=== PATIENT | female | born 1930 | race Caucasian/White ===

== ENCOUNTER → 2017-10-04 | Outpatient (CLI) | payer MEDICARE ==
[~2017-10-04] MED LIST: AMLO5TAB2 PO; CALC3.7S5 NS; CEFD300C37 PO; HYDR-3240 PO; NIFE20CA PO; NIFE30TA13 PO; POLY17PO5 PO; RIVA10TA PO
[2017-10-04 12:20] LABS: BASOPHILS # (AUTO) 0.08 x10^3/uL (0-0.1); BASOPHILS % (AUTO) 1 % (0-1); EOSINOPHILS # (AUTO) 0.09 x10^3/uL (0-0.4); EOSINOPHILS % (AUTO) 1 % (1-7); LYMPHOCYTES % (AUTO) 10 % (22-44); MD NO; MEAN CORPUSCULAR HEMOGLOBIN 32.1 pg (27.0-34.8); MEAN CORPUSCULAR HGB CONC 33.5 g/dL (32.4-35.8); MEAN CORPUSCULAR VOLUME 95.8 fL (80-100); MEAN PLATELET VOLUME 8.5 fL (7.4-10.4); MONOCYTES # (AUTO) 0.79 x10^3/uL (0.2-0.8); MONOCYTES % (AUTO) 9 % (2-9); NEUTROPHILS % (AUTO) 79 % (42-75); PLATELET COUNT 408 x10^3/uL (130-400); RED BLOOD COUNT 4.09 x10^6/uL (3.82-5.3); RED CELL DISTRIBUTION WIDTH 14.1 % (9.6-15.2)
[2017-10-04 12:28] LABS: PROTHROMBIN TIME 10.4 Seconds (9.6-11.5)
[2017-10-04 12:33] LABS: CULTURE INDICATED? YES; MICROSCOPIC INDICATED
[2017-10-04 12:36] LABS: ALBUMIN 3.6 g/dL (3.4-5.0); ANION GAP 6 mmol/L (5-15); CALCIUM 9.1 mg/dL (8.5-10.1); CHLORIDE 98 mmol/L (98-107)
[2017-10-04 12:41] LABS: ALANINE AMINOTRANSFERASE 28 U/L (12-78); ALKALINE PHOSPHATASE 119 U/L (45-117); BILIRUBIN,TOTAL 0.6 mg/dL (0.2-1.0); CREATININE 0.96 mg/dL (0.55-1.02); TOTAL PROTEIN 7.8 g/dL (6.4-8.2)
[2017-10-04 12:57] LABS: HEMOGLOBIN A1C 5.6 % (4.2-6.3)
== END | disposition home or self-care (01) ==
LOC: STAR 10:37
PROVIDERS: ATTEND Orthopaedic Surgery
DX: Z01.818 Encounter for other preprocedural examination (principal); M16.11 Unilateral primary osteoarthritis, right hip
CPT/HCPCS: 36415; 80053; 81001; 83036; 85025; 85610; 85730; 87081; 87086; 87806; 93005; G0475

== ENCOUNTER 2017-10-29 18:11 | Emergency (ER) | payer MEDICARE ==
[~2017-10-29] VITALS: Ht 162.6 cm; Wt 44.0 kg
[~2017-10-29 18:11] MED LIST changes: +ASPI-621 PO; +CELE200C PO; +DIAZ5TAB PO; +DOCU-131 PO; +ONDA4TAB7 PO; +OXYC5CAP2 PO; +TRAM50TA2 PO
[2017-10-29] MEDS ORDERED: AZIT250T PO (18:42)
[2017-10-29] MEDS ORDERED: OMEP20TA62 PO (18:42)
[2017-10-29] MEDS ORDERED: MIRT15TA PO (18:42)
[2017-10-29] MEDS ORDERED: LISI40TA PO (18:42)
[2017-10-29 20:03] VITALS: BP 189/91
== END 2017-10-29 20:39 | disposition home or self-care (01) ==
LOC: ED 20:33
DX: S00.03XA Contusion of scalp, initial encounter (principal); I10 Essential (primary) hypertension; W19.XXXA Unspecified fall, initial encounter; Y93.89 Activity, other specified; Y92.009 Unspecified place in unspecified non-institutional (private) residence as the place of occurrence of the external cause; Y99.9 Unspecified external cause status
CPT/HCPCS: 70450; 99284

== ENCOUNTER 2018-09-21 17:18 | Observation (INO) | payer MEDICARE ==
[~2018-09-21] VITALS: Ht 165.1 cm; Wt 45.7 kg
[~2018-09-21 17:18] MED LIST changes: +AMLO-150 PO; -AMLO5TAB2 PO; -ASPI-621 PO; +ASPI81TA45 PO; +AZIT250T PO; +LISI40TA PO; +MIRT15TA PO; +OMEP20TA62 PO; -RIVA10TA PO; +RIVA10TA2 PO
[2018-09-21] MEDS ORDERED: AMLO5TAB10 PO (17:37)
[2018-09-21] MEDS ORDERED: HYDR25TA6 PO (17:37)
[2018-09-21] MEDS ORDERED: PANT40TA5 PO (17:37)
[2018-09-21] MEDS ORDERED: OLAN5TAB9 PO (17:37)
[2018-09-21] MEDS ORDERED: CELE-47 PO (17:38)
--- NOTE | 2018-09-21 17:38 | NUR ---
O2 SAT 89-90% RA. OXYGEN VIA NC APPLIED; WILL TITRATE.
[2018-09-21] MEDS ORDERED: SODIUM CHLORIDE FLUSH 10ML SYR IVF PRN (20:00)
--- NOTE | 2018-09-21 20:08 | NUR ---
PT REPORT TO KENDRA DYER FOR ROOM 378. GOMEZ DISCUSSED PT STATUS W/ HER DANCING MASTER; PT BETTER CANDIDATE FOR NORTH. THROUGH PUT NURSE WILL BE NOTIFIED.
--- NOTE | 2018-09-21 20:21 | NUR ---
PT REPORT TO KENDRA MEEKS FOR ROOM 446.
--- NOTE | 2018-09-21 20:22 | NUR ---
PT'S SON: TAMMIE, TEL [phone].
[2018-09-21] MEDS ORDERED: LIDODERM 5% PATCH TD PRN (20:30)
[2018-09-21] MEDS ORDERED: BISACODYL 10 MG SUPP PR PRN (20:30)
[2018-09-21] MEDS ORDERED: HYDROcodone/APAP 5/325 TABLET PO PRN (20:30)
[2018-09-21] MEDS ORDERED: ONDANSETRON ODT 4 MG PO PRN (20:30)
[2018-09-21] MEDS ORDERED: hydrALAzine 20 MG/ML, 1ML IVPush PRN (20:30)
[2018-09-21] MEDS ORDERED: DOCUSATE 100 MG CAPSULE PO PRN (20:30)
[2018-09-21 20:47] LABS: BASOPHILS # (AUTO) 0.04 x10^3/uL (0-0.1); BASOPHILS % (AUTO) 0 % (0-1); EOSINOPHILS # (AUTO) 0.31 x10^3/uL (0-0.4); EOSINOPHILS % (AUTO) 2 % (1-7); LYMPHOCYTES # (AUTO) 1.18 x10^3/uL (1-3.4); LYMPHOCYTES % (AUTO) 8 % (22-44); MD NO; MEAN CORPUSCULAR HGB CONC 33.2 g/dL (32.4-35.8); MEAN CORPUSCULAR VOLUME 96.4 fL (80-100); MEAN PLATELET VOLUME 7.9 fL (7.4-10.4); MONOCYTES # (AUTO) 0.83 x10^3/uL (0.2-0.8); MONOCYTES % (AUTO) 6 % (2-9); NEUTROPHILS # (AUTO) 11.74 x10^3/uL (1.8-6.8); NEUTROPHILS % (AUTO) 83 % (42-75); PLATELET COUNT 403 x10^3/uL (130-400); RED BLOOD COUNT 3.75 x10^6/uL (3.82-5.3); RED CELL DISTRIBUTION WIDTH 13.6 % (9.6-15.2)
[2018-09-21 20:50] VITALS: BP 196/79
[2018-09-21 20:57] LABS: ALBUMIN 3.5 g/dL (3.4-5.0); ANION GAP 5 mmol/L (5-15); CALCIUM 9.2 mg/dL (8.5-10.1); CHLORIDE 106 mmol/L (98-107)
[2018-09-21 21:02] LABS: ALANINE AMINOTRANSFERASE 19 U/L (12-78); ALKALINE PHOSPHATASE 100 U/L (45-117); BILIRUBIN,TOTAL 0.7 mg/dL (0.2-1.0); CREATININE 0.86 mg/dL (0.55-1.02); TOTAL PROTEIN 7.8 g/dL (6.4-8.2)
[2018-09-21 22:00] VITALS: BP 196/79
[2018-09-21 22:40] VITALS: BP 149/89
[2018-09-21 22:56] LABS: MICROSCOPIC AUTO
[2018-09-21] MEDS ORDERED: HYDROCHLOROTHIAZIDE 25 MG TABLET PO PRN (23:00)
[2018-09-22 01:44] VITALS: BP 132/73
[2018-09-22 05:24] LABS: BASOPHILS # (AUTO) 0.03 x10^3/uL (0-0.1); BASOPHILS % (AUTO) 0 % (0-1); EOSINOPHILS # (AUTO) 0.05 x10^3/uL (0-0.4); EOSINOPHILS % (AUTO) 1 % (1-7); LYMPHOCYTES # (AUTO) 0.67 x10^3/uL (1-3.4); LYMPHOCYTES % (AUTO) 7 % (22-44); MD NO; MEAN CORPUSCULAR HEMOGLOBIN 31.5 pg (27.0-34.8); MEAN CORPUSCULAR HGB CONC 33.1 g/dL (32.4-35.8); MEAN CORPUSCULAR VOLUME 95.3 fL (80-100); MEAN PLATELET VOLUME 8.2 fL (7.4-10.4); MONOCYTES % (AUTO) 9 % (2-9); NEUTROPHILS # (AUTO) 7.67 x10^3/uL (1.8-6.8); NEUTROPHILS % (AUTO) 83 % (42-75); PLATELET COUNT 370 x10^3/uL (130-400); RED BLOOD COUNT 3.46 x10^6/uL (3.82-5.3); RED CELL DISTRIBUTION WIDTH 13.2 % (9.6-15.2)
[2018-09-22 05:26] LABS: ANION GAP 7 mmol/L (5-15); CALCIUM 9.1 mg/dL (8.5-10.1); CHLORIDE 106 mmol/L (98-107)
[2018-09-22 07:18] VITALS: BP 129/63
[2018-09-22] MEDS: HEPARIN 5,000 UNITS/ML, 1ML SQ SCH ×2 (11:28→20:18)
[2018-09-22] MEDS: LACTOBACILLUS CHEW TABLET PO SCH ×3 (11:28→20:17)
[2018-09-22] MEDS: PANTOPROZOLE 40MG TABLET PO SCH (11:29)
[2018-09-22] MEDS: LISINOPRIL 20 MG TABLET PO SCH ×2 (11:29→20:18)
[2018-09-22] MEDS: CEFTRIAXONE PMX 1GM/50ML 50 ML IV SCH (11:31)
[2018-09-22] MEDS ORDERED: BISACODYL 10 MG SUPP PR PRN (13:00)
[2018-09-22] MEDS ORDERED: MAGNESIUM CITRATE 300ML ORAL SOL PO ONE (13:00)
[2018-09-22 13:19] VITALS: BP 150/79
[2018-09-22] MEDS: AMLODIPINE 5 MG TABLET PO SCH (14:16)
[2018-09-22] MEDS: OLANZAPINE 5 MG TABLET PO SCH (14:16)
[2018-09-22] MEDS ORDERED: hydrALAzine 20 MG/ML, 1ML IVPush PRN (15:00)
[2018-09-22 18:24] VITALS: BP 155/89
[2018-09-23 00:43] VITALS: BP 147/82
[2018-09-23] MEDS: ALENDRONATE 10 MG TABLET PO SCH (06:18)
[2018-09-23 08:02] VITALS: BP 122/65
[2018-09-23] MEDS: LISINOPRIL 20 MG TABLET PO SCH ×2 (08:05→20:16)
[2018-09-23] MEDS: OLANZAPINE 5 MG TABLET PO SCH (08:05)
[2018-09-23] MEDS: PANTOPROZOLE 40MG TABLET PO SCH (08:05)
[2018-09-23] MEDS: AMLODIPINE 5 MG TABLET PO SCH (08:05)
[2018-09-23] MEDS: LACTOBACILLUS CHEW TABLET PO SCH ×3 (08:05→20:16)
[2018-09-23] MEDS: HEPARIN 5,000 UNITS/ML, 1ML SQ SCH ×2 (08:06→20:16)
[2018-09-23] MEDS: CEFTRIAXONE PMX 1GM/50ML 50 ML IV SCH (10:59)
[2018-09-23 14:00] VITALS: BP 135/72
[2018-09-23] MEDS: ACETAMINOPHEN 325 MG TABLET PO PRN ×2 (16:41→20:34)
[2018-09-23 19:55] VITALS: BP 111/70
[2018-09-24 00:39] VITALS: BP 103/57
[2018-09-24] MEDS: ACETAMINOPHEN 325 MG TABLET PO PRN (04:48)
[2018-09-24] MEDS: ALENDRONATE 10 MG TABLET PO SCH (07:05)
[2018-09-24 07:59] VITALS: BP 116/70
[2018-09-24] MEDS: LACTOBACILLUS CHEW TABLET PO SCH ×3 (08:27→20:33)
[2018-09-24] MEDS: PANTOPROZOLE 40MG TABLET PO SCH (08:27)
[2018-09-24] MEDS: LISINOPRIL 10 MG TABLET PO SCH ×2 (08:27→20:33)
[2018-09-24] MEDS: HEPARIN 5,000 UNITS/ML, 1ML SQ SCH ×2 (08:27→20:33)
[2018-09-24] MEDS: AMLODIPINE 5 MG TABLET PO SCH (08:27)
[2018-09-24] MEDS: OLANZAPINE 5 MG TABLET PO SCH (08:31)
[2018-09-24] MEDS ORDERED: CEFTRIAXONE PMX 1GM/50ML 50 ML IV SCH (11:00)
[2018-09-24 13:46] VITALS: BP 118/79
[2018-09-24 18:47] VITALS: BP 137/72
[2018-09-25 02:00] VITALS: BP 116/70
[2018-09-25] MEDS: ALENDRONATE 10 MG TABLET PO SCH (05:40)
[2018-09-25 07:48] VITALS: BP 103/58
[2018-09-25] MEDS: LISINOPRIL 10 MG TABLET PO SCH ×2 (08:23→21:04)
[2018-09-25] MEDS: AMLODIPINE 5 MG TABLET PO SCH (08:23)
[2018-09-25] MEDS: LACTOBACILLUS CHEW TABLET PO SCH ×3 (08:23→21:04)
[2018-09-25] MEDS: OLANZAPINE 5 MG TABLET PO SCH (08:23)
[2018-09-25] MEDS: HEPARIN 5,000 UNITS/ML, 1ML SQ SCH ×2 (08:23→21:08)
[2018-09-25 12:23] VITALS: BP 107/68
[2018-09-25] MEDS ORDERED: ACID1TAB7 PO (12:46)
[2018-09-25] MEDS ORDERED: ACET325T14 PO (12:46)
[2018-09-25] MEDS ORDERED: LISI40TA PO (12:46)
[2018-09-25 19:27] VITALS: BP 155/78
[2018-09-25] MEDS: ACETAMINOPHEN 325 MG TABLET PO PRN (21:04)
[2018-09-26 01:46] VITALS: BP 128/71
[2018-09-26] MEDS: ALENDRONATE 10 MG TABLET PO SCH (05:28)
[2018-09-26 06:42] VITALS: BP 112/73
[2018-09-26 07:25] VITALS: BP 136/78
[2018-09-26] MEDS: LISINOPRIL 10 MG TABLET PO SCH ×2 (08:59→20:00)
[2018-09-26] MEDS: HEPARIN 5,000 UNITS/ML, 1ML SQ SCH ×2 (09:00→20:00)
[2018-09-26] MEDS: OLANZAPINE 5 MG TABLET PO SCH (09:00)
[2018-09-26] MEDS: CEFDINIR 300 MG CAPSULE PO SCH ×2 (09:00→19:59)
[2018-09-26] MEDS: AMLODIPINE 5 MG TABLET PO SCH (09:00)
[2018-09-26] MEDS: LACTOBACILLUS CHEW TABLET PO SCH ×3 (09:00→19:59)
[2018-09-26] MEDS: ACETAMINOPHEN 325 MG TABLET PO PRN (13:31)
[2018-09-26 13:50] VITALS: BP 136/82
[2018-09-26 18:52] VITALS: BP 159/72
[2018-09-27 00:17] VITALS: BP 144/70
[2018-09-27] MEDS: ALENDRONATE 10 MG TABLET PO SCH (05:32)
[2018-09-27 07:07] VITALS: BP 163/81
[2018-09-27] MEDS ORDERED: OLANZAPINE 10 MG TABLET ONE (08:38)
[2018-09-27] MEDS: CEFDINIR 300 MG CAPSULE PO SCH ×2 (08:44→20:28)
[2018-09-27] MEDS: AMLODIPINE 5 MG TABLET PO SCH (08:44)
[2018-09-27] MEDS: LACTOBACILLUS CHEW TABLET PO SCH ×3 (08:44→20:28)
[2018-09-27] MEDS: OLANZAPINE 5 MG TABLET PO SCH (08:44)
[2018-09-27] MEDS: LISINOPRIL 10 MG TABLET PO SCH ×2 (08:45→20:29)
[2018-09-27] MEDS: HEPARIN 5,000 UNITS/ML, 1ML SQ SCH ×2 (08:45→20:29)
[2018-09-27 14:07] VITALS: BP 136/73
[2018-09-27] MEDS: ACETAMINOPHEN 325 MG TABLET PO PRN (16:07)
[2018-09-27 18:30] VITALS: BP 118/67
[2018-09-28 00:27] VITALS: BP 156/71
[2018-09-28] MEDS: ALENDRONATE 10 MG TABLET PO SCH (06:21)
[2018-09-28 07:05] VITALS: BP 132/64
[2018-09-28] MEDS: CEFDINIR 300 MG CAPSULE PO SCH (07:44)
[2018-09-28] MEDS: OLANZAPINE 5 MG TABLET PO SCH (07:44)
[2018-09-28] MEDS: HEPARIN 5,000 UNITS/ML, 1ML SQ SCH (07:44)
[2018-09-28] MEDS: LISINOPRIL 10 MG TABLET PO SCH (07:45)
[2018-09-28] MEDS: AMLODIPINE 5 MG TABLET PO SCH (07:45)
[2018-09-28] MEDS: LACTOBACILLUS CHEW TABLET PO SCH (07:45)
[2018-09-28] MEDS ORDERED: CEFD300C37 PO (07:48)
== END 2018-09-28 10:35 | disposition home or self-care (01) ==
LOC: ED 19:13 → EDIP 19:38 → INTOOBSV 19:38 → 4NOR 20:50
PROVIDERS: ADMIT Hospitalist; ATTEND Hospitalist
DX: M25.551 Pain in right hip (principal); H40.9 Unspecified glaucoma; I10 Essential (primary) hypertension; I16.0 Hypertensive urgency; D72.829 Elevated white blood cell count, unspecified; R79.89 Other specified abnormal findings of blood chemistry; K59.00 Constipation, unspecified; Z90.710 Acquired absence of both cervix and uterus; Z96.643 Presence of artificial hip joint, bilateral; W01.0XXA Fall on same level from slipping, tripping and stumbling without subsequent striking against object, initial encounter; Y93.89 Activity, other specified; Y92.89 Other specified places as the place of occurrence of the external cause; Y99.8 Other external cause status
CPT/HCPCS: 36415; 71045; 72192; 73502; 73552; 80048; 80053; 81001; 85025; 93306; 96365; 96366; 96372; 97116; 97161; 97166; 97530; 99284; G0378; J0696; J1644; 99285